=== PATIENT | female | born 1990 | race Caucasian/White ===

== ENCOUNTER 2017-03-18 22:16 | Emergency (ER) | payer BC ==
--- NOTE | 2017-03-18 22:59 | ERNOTE ---
Dyspnea - Date Date of Service: 03/18/17 - General Time Seen by Provider: 03/18/17 22:47 Source: patient Exam Limitations: no limitations - Immun/Allergies/Home Medications Immunizations: IMMUNIZATION HX Immunizations Up to Date Yes History of Influenza Vaccine No Hx Pneumococcal Vaccination No Allergies/Adverse Reactions: Allergies No Known Allergies Allergy (Verified 03/18/17 22:39) Home Medications: HOME MEDICATIONS Iron 03/03/17 [Last Taken Unknown] Levothyroxine Sodium 03/03/17 [Last Taken Unknown] Magnesium 03/03/17 [Last Taken Unknown] Vitamins 03/03/17 [Last Taken Unknown] Ascorbic Acid [Vitamin C] 500 mg PO DAILY 03/18/17 [Last Taken Unknown] Cholecalciferol [Vitamin D] 400 unit PO DAILY 03/18/17 [Last Taken Unknown] Nitrofurantoin/Nitrofuran Mac [Macrobid] 100 mg PO Q12H #14 cap 03/19/17 [Last Taken Unknown] - History of Present Illness Narrative: Patient presents to the emergency room for one episode of vomiting that was followed by chest pain and shortness of breath while at rest. She denies having any history of GERD, she has no history of asthma but she does feel short of breath. Does state that since since she has arrived to our emergency room for shortness of breath has improved. She has not taken any medication for this shortness of breath. Patient is 14 weeks . She denies any vaginal complaints. He denies any fevers or chills cough or congestion. He denies any history of diaphoresis or other symptoms Review of Systems - Review of Systems Constitutional: Present: no symptoms reported EYE: Present: no symptoms reported ENT: Present: no symptoms reported Respiratory: Present: See HPI Cardiology: Present: See HPI Gastrointestinal/Abdominal: Present: See HPI Genitourinary: Present: no symptoms reported Musculoskeletal: Present: no symptoms reported Skin: Present: no symptoms reported - Patient's Past Medical History Patient History - Medical: Hypothyroidism Patient History - Cardiac/Respiratory: No pertinent hx Patient History - Cancer: No Hx of Cancer Patient History - Surgical Procedures: Appendectomy, T & A, Other Patient History - Other: None LMP (females 10-50): LMP (Calendar): 12/08/16 - Family History Mother Family History - Medical: No pertinent hx Family History - Cardiac/Respiratory: No pertinent hx Family History - Cancer: No pertinent family hx - Social History Living Situations: significant other Abuse History: No History of abuse Psych History: Hx of Anxiety, Hx of Depression Smoking Status: Former smoker Have you smoked in the past 12 months: No Do you dip or chew tobacco: No Smoking Stop Date: 03/13/14 Alcohol Use: none Drug Use: none - Immunizations Immunizations Up to Date: Yes Hx Pneumococcal Vaccination: No History of Influenza Vaccine: No Physical Exam - Physical Exam General Appearance: Present: wd/wn, alert, no apparent distress Head Exam: Present: normal inspection, no evidence of injury Ears, Nose, Throat: Present: normal ENT inspection Neck: Present: normal inspection, nontender Respiratory: Present: no respiratory distress, normal breath sounds, no accessory muscle use, chest nontender, lungs clear Cardiovascular/Chest: Present: regular rate, rhythm, no murmur, normal peripheral pulses Gastrointestinal/Abdominal: Present: normal bowel sounds, nontender, nondistended, soft, no organomegaly ED Progress - Results and Orders Patient's Lab Results:: I have reviewed the patient's lab results. - Vital Signs Patient's Vital Signs:: I have reviewed the patient's vital signs. Vital Signs: Vital Signs 03/18/17 22:23 Temperature 36.2 C L Pulse Rate 60 Respiratory 18 Rate Blood Pressure 116/60 O2 Sat by Pulse 100 Oximetry - EKG EKG: NSR EKG read: Interp. by me - X-Ray X-Ray #1 X-Ray: chest - Progress/Reassessment Chief Complaint: Dyspnea Plan - Plan Plan: This case was discussed in detail with our floor attendant and supervisor costuming Dr. Bland. All lab tests and findings were discussed with our supervisor costuming, repeat questioning of the patient revealed the patient was no longer having shortness of breath. I was advised by the supervisor costuming on-call that the patient states to be sent home. Patient's urinalysis reveals bacteria and white blood cells at this time we will treat this patient for bacteriuria during and educate her about dyspnea of Departure Clinical Impression: UTI in Qualifiers: Trimester: second trimester Qualified Code(s): O23.42 - Unspecified infection of urinary tract in , second trimester - Departure Disposition: Home self-care Condition: Good Instructions: and Urinary Tract Infection Additional Instructions: You may have a condition called dyspnea of . At this time our tests show that you have a urinary tract infection for which she will be treated. Please follow up with her primary care physician as indicated and return to the ER if shortness of breath was to return Referrals: Paco Bland DO [Primary Care Provider] - Prescriptions: Nitrofurantoin/Nitrofuran Mac [Macrobid] 100 mg PO Q12H #14 cap
[2017-03-18 23:03] LABS: Hematocrit 35.6 % (37.0-47.0); Hemoglobin 11.9 gm/dL (12.5-16.0); Mean Cell Volume 91.8 fl (78-100); Mean Corpuscular Hemoglobin 30.7 pg (27-31); Mean Corpuscular Hgb Conc 33.4 g/dl (32-36); Mean Platelet Volume 11.3 fl (6.0-9.5); Neutrophil # 6.7 K/mm3 (1.3-6.0); Neutrophil % 65.4 % (42-75.0); Platelet Count 228 K/mm3 (150-450); Red Blood Count 3.88 M/mm3 (4.2-5.4); Red Cell Distribution Width 12.4 % (11.5-14.0); White Blood Count 10.2 K/mm3 (4.0-10.5)
[2017-03-18 23:36] LABS: ALT 15 U/L (19-67); AST 11 U/L (0-48); Albumin * 3.3 gm/dl (3.4-5.0); Alkaline Phosphatase * 42 U/L (50-170); Anion Gap 16.2 mmol/L (6.8-13.8); BUN/Creatinine Ratio 11.1 (9.0-21.6); Bilirubin, Total 0.3 mg/dL (0.0-1.1); Blood Urea Nitrogen 6 mg/dL (3-23); Calcium * 8.8 mg/dL (7.9-10.9); Carbon Dioxide 23.4 mmol/L (24-32.6); Chloride 102 mmol/L (97-106); Glucose * 87 mg/dL (70-110); Potassium 3.6 mmol/L (3.4-4.6); Sodium 138 mmol/L (132-142); Total Protein 7.4 gm/dL (6.2-8.2); Troponin I Less than 0.017 ng/ml (0.00-0.10)
[2017-03-18 23:48] LABS: Urine Bilirubin Negative (NEGATIVE); Urine Blood Negative /ul (NEGATIVE); Urine Ketone Negative (NEGATIVE); Urine Nitrite Negative (NEGATIVE); Urine Protein Negative (NEGATIVE); Urine Urobilinogen Normal (NORMAL); Urine pH 6.5 pH (5.0-7.0)
[2017-03-18 23:57] LABS: Urine Appearance Clear; Urine Bacteria TRACE; Urine Color Yellow; Urine RBC None Seen /hpf (0-5); Urine WBC TRACE /hpf (0-5)
[2017-03-19] MEDS ORDERED: NITROFURANTOIN/NITROFURAN MAC 100 MG CAPSULE ONE (00:07)
[2017-03-19] MEDS: NITROFURANTOIN/NITROFURAN MAC 100 MG CAPSULE PO SCH (00:08)
[2017-03-19 00:36] VITALS: BP 111/58
== END 2017-03-19 00:25 | disposition home or self-care (01) ==
LOC: ER 22:16
PROC: 4A033R1 Measurement of Arterial Saturation, Peripheral, Percutaneous Approach (ICD-10-PCS; principal; 2017-03-18)
DX: O23.42 Unspecified infection of urinary tract in pregnancy, second trimester (principal); Z3A.14 14 weeks gestation of pregnancy; Z87.891 Personal history of nicotine dependence

== ENCOUNTER 2017-08-19 07:34 | Inpatient (IN) ==
[2017-08-19] MEDS ORDERED: RINGER'S SOLUTION,LACTATED 1,000 ML IV PRN (08:10)
[2017-08-19] MEDS ORDERED: BUTORPHANOL TARTRATE 2 MG/ML VIAL IV PRN (08:10)
[2017-08-19] MEDS ORDERED: OXYTOCIN/DEXTROSE 5%-WATER 30 UNITS/500 ML BAG IV ONE (08:10)
[2017-08-19] MEDS ORDERED: LIDOCAINE HCL 50 ML VIAL PERI PRN (08:10)
[2017-08-19] MEDS ORDERED: ONDANSETRON HCL/PF 2 MG/ML VIAL IV PRN ×2 (08:10→13:59)
[2017-08-19] MEDS ORDERED: RINGER'S SOLUTION,LACTATED 1,000 ML IV ONE (08:10)
[2017-08-19] MEDS: DEXTROSE 5%-LACTATED RINGERS 1,000 ML IV PRN ×3 (09:09→20:39)
[2017-08-19 09:47] LABS: Hematocrit 36.5 % (37.0-47.0); Hemoglobin 11.8 gm/dL (12.5-16.0); Mean Cell Volume 92.9 fl (78-100); Mean Corpuscular Hgb Conc 32.3 g/dl (32-36); Mean Platelet Volume 13.6 fl (6.0-9.5); Neutrophil # 10.5 K/mm3 (1.3-6.0); Neutrophil % 83.9 % (42-75.0); Platelet Count 173 K/mm3 (150-450); Red Blood Count 3.93 M/mm3 (4.2-5.4); Red Cell Distribution Width 13.6 % (11.5-14.0); White Blood Count 12.5 K/mm3 (4.0-10.5)
[2017-08-19 10:02] LABS: Random Urine Total Protein Less than 6.0 mg/dL (0-12)
[2017-08-19 10:15] LABS: Albumin * 2.5 gm/dl (3.4-5.0); Anion Gap 12.5 mmol/L (6.8-13.8); BUN/Creatinine Ratio 12.5 (9.0-21.6); Bilirubin, Total 0.2 mg/dL (0.0-1.1); Ca. Corrected For Albumin 10.4 mg/dL (8.4-10.2); Calcium * 9.5 mg/dL (7.9-10.9); Carbon Dioxide 24.1 mmol/L (24-32.6); Potassium 3.6 mmol/L (3.4-4.6); Total Protein 6.6 gm/dL (6.2-8.2)
[2017-08-19] MEDS ORDERED: NALOXONE HCL 1 MG/1 ML SYRG IV PRN (13:59)
[2017-08-19] MEDS ORDERED: BUPIVACAINE HCL/0.9 % NACL/PF 250 ML EP PRN (13:59)
[2017-08-19] MEDS ORDERED: BUPIVACAINE HCL/PF 30 ML VIAL EP SCH (14:00)
--- NOTE | 2017-08-19 14:42 | PN ---
Subjective - Date and Time Seen Date: 08/19/17 Subjective Narrative: Labor note 26 yo, CF, G1 at 36.2 w with PPROM at 6 am this morning. admitted for induction. GBS negative dilated to 1 cm at admission. pitocin started for induction, currently at 18 mu/min. received one dose of stadol at 13:15. cervix 3/50/-3 at 13:15 FHR: reassuring 125s with accels (Nov[employer] wireless monitoring) [place]: irregular, not picking up contractions well due to body habitus. other problems: hypothyroidism morbid obesity (BMI 44, 105.6 kg) likely developing gestational hypertension. BP mildly elevated, no headache. pih labs normal and random protein/creatinine ratio 193. Plan: continue pitocin as tolerated. epidural per patient request. consider IUPC/ISE for monitoring. Lisa Dillon MD Objective - Vitals Vitals: Last Vital Signs Temp 36.4 C L 08/19/17 14:35 Pulse 46 L 08/19/17 14:35 Resp 18 08/19/17 14:35 BP 141/63 08/19/17 14:35 Pulse Ox 99 08/19/17 14:35 - Abnormal Lab Findings Abnormal Lab Findings: Abnormal Lab Results 08/19/17 08/19/17 08/19/17 Range/Units 09:34 09:34 09:34 WBC 12.5 H (4.0-10.5) K/mm3 RBC 3.93 L (4.2-5.4) M/mm3 Hgb 11.8 L (12.5-16.0) gm/dL Hct 36.5 L (37.0-47.0) % MPV 13.6 H (6.0-9.5) fl Immature Gran # (Auto) 0.05 H (0.000-0.0310) K/mm3 Neutrophils % 83.9 H (42-75.0) % Lymphocytes % 11.9 L (20-51) % Neutrophils # 10.5 H (1.3-6.0) K/mm3 Lymphocytes # 1.49 L (1.5-3.5) k/mm3 Est GFR (Non-Af Amer) 139 H (60-130) mL/min Calcium Adj for Albumin 10.4 H (8.4-10.2) mg/dL ALT 15 L (19-67) U/L Albumin 2.5 L (3.4-5.0) gm/dl Ur Random Creatinine 31.1 L (60-200) mg/dL
--- NOTE | 2017-08-19 15:03 | OR ---
Anesthesia Procedure Note - Anesthesia Procedure Note Date of Service: 08/19/17 Narrative: Vital Signs - Last Taken Temp 36.4 C L 08/19/17 14:35 Pulse 46 L 08/19/17 14:35 Resp 18 08/19/17 14:35 BP 141/63 08/19/17 14:35 Pulse Ox 99 08/19/17 14:35 08/19/17 15:02 ANESTHESIA PROCEDURE NOTE Date of Procedure: 08/19/2017. Time of procedure: 1440. Performed by: Twan Zelaya CRNA Industrial Pharmacist: None. Preprocedure diagnosis: Active labor. Post procedure diagnosis: Same. Procedure: Insertion of labor epidural. Indications: The patient is a 26 -year-old female in active labor requesting labor epidural for pain management. Findings: See below. Details of the procedure: The patient was placed in a sitting position. DuraPrep as well as Betadine swabs X3 was applied to the patient's back. Patient was then draped in a sterile fashion. Lidocaine 1% was infiltrated to the skin and subcutaneous tissues at the level of the L3-4 interspace. The epidural space was identified using a 18-gauge Tuohy needle with loss-of- resistance technique. Epidural catheter was inserted to a depth of 12 centimeters at skin. Negative test dose was elicited using 3 mL of 1.5% preservative-free lidocaine plus epinephrine 1 200,000. The epidural catheter was then taped and secured in place. A loading dose of 8 mL of 0.25% preservative-free bupivacaine was administered to the epidural catheter after negative aspiration for blood and CSF. EBL: Minimal. Fluids: N/A. Specimen: N/A. Post procedure condition: The patient tolerated the procedure well. No complications were noted. Thank you for this consultation. Twan Zelaya CRNA
[2017-08-19] MEDS: CALCIUM CARBONATE 500 MG TAB.CHEW PO PRN (17:12)
[2017-08-19] MEDS ORDERED: FAMOTIDINE 20 MG in DEXTROSE 5 % IN WATER 100 ML IV PRN ×2 (17:26)
[2017-08-19] MEDS: CLINDAMYCIN PHOSPHATE 900 MG in DEXTROSE 5 % IN WATER 100 ML IV SCH ×2 (17:52)
[2017-08-20] MEDS ORDERED: MISOPROSTOL 100 MCG TABLET VG ONE (00:01)
[2017-08-20] MEDS ORDERED: MISOPROSTOL 200 MCG TABLET RC ONE (00:15)
--- NOTE | 2017-08-20 00:54 | OR ---
Operative Report - Dictated Report Narrative: Spontaneous Vaginal Delivery Note: 26 yo, CF, G1 at 36.2 w admitted with PPROM, grossly ruptured, GBS negative. Dilated to 1 cm at admission. Blood pressure was mildly elevated. PIH labs were normal. Pitocin started for induction. Received stadol x 1 dose when dilated to 3 cm. Then received epidural 1.5 hours later. Developed post epidural heart rate decelerations to the 60s and 70s. Pitocin was discontinued. Blood pressured was normal at the time, 127/59 and 133/66. However, patient's heart rate was in the 47-59 range. Patient's heart rate prior to epidural was also in the 50-60. Stat EKG obtained per anesthesia recommendation and showed sinus bradycardia with ST changes. Internal medicine Dr. Jimenez was called for consultation. Patient was not having chest pain. Troponin ordered per Dr. Jimenez and was normal. heart rate returned to normal after IV fluid bolus. IUPC and ISE were placed after epidural placement due to maternal morbid obesity. heart rate remained reassuring. Pitocin resumed at 3 mu/min. Received one dose of clindamycin 900 mg iv after 12 hours of ruptured membrane and also due to internal monitoring. Patient progressed to complete without complications. Pushed for over an hour. Head delivered in OA over the perineum. No nuchal cord noted. The anterior shoulder delivered, followed by the posterior shoulder and the rest of the baby without difficulty. Baby was trying to cry, but couldn't. Baby placed on maternal abdomen for drying and care by the nursing. Cord was clamped at one minute of life and cut by the father of baby. A cord segment was obtained for cord gas. Cord blood was obtained. Placenta delivered intact with 3 vessel cord. Pitocin drip started after placenta delivered. Exam of the perineum, vaginal and cervix revealed a second degree perineum laceration. This was repaired with 3-0 Vicryl suture in a normal fashion. Uterus appeared soft and cytotec 800 mcg was placed in the rectum. Fundus was massaged and firmed up gradually. Bleeding was moderate. Mother tolerated the delivery well. EBL 200 ml. Baby was taken to nursery for further care and assessment. : male, 2357 grams, 5 lbs and 3.1oz. 2/6/7. Time of delivery: 23:52. Lisa Dillon MD History for MU Definition: * The number of deliveries resulting in a live the patient experienced prior to current hospitalization * The previous delivery of live twins or any live multiple gestation is considered one live event. *If primagravida or nulliparous is documented select zero for the number of previous live births. Live Events: 0
[2017-08-20] MEDS ORDERED: GLYCERIN/WITCH HAZEL LEAF 40 APPL BOX TP PRN (01:16)
[2017-08-20] MEDS ORDERED: HYDROCORTISONE 30 APPL TUBE TP PRN (01:16)
[2017-08-20] MEDS ORDERED: OXYTOCIN/DEXTROSE 5%-WATER 30 UNITS/500 ML BAG IV ONE (01:16)
[2017-08-20] MEDS ORDERED: BENZOCAINE/MENTHOL 81 SPRAY CAN TP PRN (01:16)
[2017-08-20] MEDS ORDERED: diphenhydrAMINE HCL 25 MG CAPSULE PO PRN (01:16)
[2017-08-20] MEDS ORDERED: BISACODYL 10 MG SUPP.RECT RC PRN (01:16)
[2017-08-20] MEDS ORDERED: SENNOSIDES 8.6 MG TABLET PO PRN (01:16)
[2017-08-20] MEDS: CLINDAMYCIN PHOSPHATE 900 MG in DEXTROSE 5 % IN WATER 100 ML IV SCH ×2 (01:41)
[2017-08-20] MEDS: IBUPROFEN 800 MG TABLET PO PRN ×4 (02:04→22:52)
[2017-08-20] MEDS: HYDROcodone/ACETAMINOPHEN 1 EACH TABLET PO PRN ×5 (02:05→19:40)
[2017-08-20] MEDS: LEVOTHYROXINE SODIUM 50 MCG TABLET PO SCH (07:09)
[2017-08-20] MEDS: DOCUSATE SODIUM 100 MG CAPSULE PO SCH (08:49)
--- NOTE | 2017-08-20 11:58 | PN ---
Subjective - Date and Time Seen Date: 08/20/17 Subjective Narrative: day 1, s/p no complaints. BP still mildly elevated, but no symptoms. still sinus bradycardia 45-55 range, and this is her normal according to the patient. troponin normal x 2. FT4 was normal as well. by pumping. normal lochia. baby doing well now and on room air. Objective - Vitals Vitals: Last Vital Signs Temp 36.3 C L 08/20/17 07:53 Pulse 55 L 08/20/17 07:53 Resp 16 08/20/17 07:53 BP 133/80 08/20/17 07:53 Pulse Ox 98 08/20/17 07:53 - Exam Constitutional: Present: Alert, Oriented x3, Cooperative Respiratory: Present: no respiratory distress Abdomen: Present: soft, nontender, nondistended, other - fundus firm and non- tender Extremity: Present: normal range of motion, no calf tenderness, lower extremity edema - 1+, pedal edema - 1+ Skin Exam: Present: normal color, warm/dry, no cyanosis Appearance: Present: appropriate appearance Eye contact: Present: cooperative, good eye contact, normal speech Cauti Physician Documentation - Urinary Catheter Management Urethral (Carreon) Date of Insertion: 08/19/17 Time of Insertion: 15:41 Date of Removal: 08/19/17 Time of Removal: 22:45 Assessment/Plan Plan Narrative: A: PPD#1, s/p stable, but with 1. history of sinus bradycardia and still in sinus bradycardia without symptoms , troponin normal x 2, FT4 normal. 2. blood pressure mildly elevated, pih labs normal, patient asymptomatic. 3. history of hypothyroidism, on levothyroxin 50 mcg daily. Plan: routine care. encourage ambulation Lisa Dillon MD
[2017-08-21] MEDS: CALCIUM CARBONATE 500 MG TAB.CHEW PO PRN (01:49)
[2017-08-21] MEDS: HYDROcodone/ACETAMINOPHEN 1 EACH TABLET PO PRN ×6 (03:39→23:31)
[2017-08-21] MEDS: LEVOTHYROXINE SODIUM 50 MCG TABLET PO SCH (06:53)
[2017-08-21] MEDS: IBUPROFEN 800 MG TABLET PO PRN ×3 (08:26→23:31)
[2017-08-21] MEDS: DOCUSATE SODIUM 100 MG CAPSULE PO SCH ×3 (08:41→19:59)
--- NOTE | 2017-08-21 11:45 | PN ---
Progess Note - Interim Date: 08/21/17 Time: 11:45 Narrative: 08/21/17 11:45 Subjective: Patient is doing well, ambulating, voiding, tolerating by mouth. Minimal lochia. Pain controlled with medication. Objective: Vital signs stable General: no acute distress Abdomen: Soft, nondistended, diffusely tender, fundus firm Extremities: Minimal edema, nontender Assessment and plan: Postoperative day 2 Feeding: breast/bottle Pain: Controlled with by mouth medication Routine postoperative care.
[2017-08-21 19:07] VITALS: BP 137/65
== END 2017-08-21 23:55 | disposition home or self-care (01) | DRG 775 ==
LOC: OBCLINIC 07:34 → OB 08:00 → MS 08-20 16:25
PROVIDERS: ADMIT Obstetrics & Gynecology; ATTEND Obstetrics & Gynecology
DX: E03.9 Hypothyroidism, unspecified; O99.284 Endocrine, nutritional and metabolic diseases complicating childbirth; Z3A.36 36 weeks gestation of pregnancy; O99.214 Obesity complicating childbirth; O70.1 Second degree perineal laceration during delivery; R00.1 Bradycardia, unspecified; Z68.41 Body mass index [BMI] 40.0-44.9, adult; O60.14X0 Preterm labor third trimester with preterm delivery third trimester, not applicable or unspecified; Z37.0 Single live birth; O13.4 Gestational [pregnancy-induced] hypertension without significant proteinuria, complicating childbirth; O42.013 Preterm premature rupture of membranes, onset of labor within 24 hours of rupture, third trimester; E66.01 Morbid (severe) obesity due to excess calories
CPT/HCPCS: 36415; 59025; 80053; 82570; 84155; 84156; 84439; 84481; 84484; 85025; 86850; 86900; 88307; 93005; J2405

== ENCOUNTER 2017-08-25 12:15 | Inpatient (IN) ==
[2017-08-25] MEDS ORDERED: RINGER'S SOLUTION,LACTATED 1,000 ML IV PRN (12:26)
[2017-08-25] MEDS ORDERED: MAGNESIUM SULFATE IN WATER 50 ML, MAGNESIUM SULFATE IN WATER 50 ML IV ONE ×2 (12:26)
[2017-08-25 13:03] LABS: Hematocrit 33.3 % (37.0-47.0); Mean Cell Volume 91.5 fl (78-100); Mean Corpuscular Hemoglobin 30.2 pg (27-31); Mean Platelet Volume 12.1 fl (6.0-9.5); Neutrophil # 11.2 K/mm3 (1.3-6.0); Neutrophil % 78.6 % (42-75.0); Platelet Count 235 K/mm3 (150-450); Red Blood Count 3.64 M/mm3 (4.2-5.4); Red Cell Distribution Width 13.3 % (11.5-14.0); White Blood Count 14.3 K/mm3 (4.0-10.5)
[2017-08-25 13:18] LABS: Albumin * 2.9 gm/dl (3.4-5.0); Anion Gap 16.5 mmol/L (6.8-13.8); BUN/Creatinine Ratio 16.4 (9.0-21.6); Bilirubin, Total 0.3 mg/dL (0.0-1.1); Ca. Corrected For Albumin 9.4 mg/dL (8.4-10.2); Calcium * 8.8 mg/dL (7.9-10.9); Carbon Dioxide 22.1 mmol/L (24-32.6); Magnesium 1.6 mg/dL (1.2-2.8); Potassium 3.6 mmol/L (3.4-4.6); Total Protein 6.9 gm/dL (6.2-8.2)
[2017-08-25] MEDS: NIFEdipine 30 MG TAB.SR.24H PO SCH (13:18)
[2017-08-25] MEDS ORDERED: diphenhydrAMINE HCL 50 MG/ML VIAL IV ONE (13:30)
[2017-08-25 13:32] LABS: Urine Bilirubin Negative (NEGATIVE); Urine Blood Negative /ul (NEGATIVE); Urine Ketone Negative (NEGATIVE); Urine Nitrite Negative (NEGATIVE); Urine Protein Negative (NEGATIVE); Urine Specific Gravity <=1.005 SP.GR. (1.005-1.010); Urine Urobilinogen Normal (NORMAL)
[2017-08-25 13:41] LABS: Random Urine Total Protein Less than 6.0 mg/dL (0-12)
[2017-08-25] MEDS: MAGNESIUM SULFATE IN WATER 1,000 ML IV SCH (14:03)
[2017-08-25] MEDS: METOCLOPRAMIDE HCL 5 MG/ML VIAL IV ONE ×3 (14:09→15:07)
[2017-08-25] MEDS ORDERED: METOCLOPRAMIDE HCL 5 MG/ML VIAL IV PRN (14:22)
[2017-08-25] MEDS: IBUPROFEN 800 MG TABLET PO PRN ×2 (14:40→22:38)
[2017-08-25 14:47] LABS: Urine Appearance Clear (CLEAR); Urine Bacteria None Seen; Urine Color Pale Yellow; Urine RBC None Seen /hpf (0-5); Urine WBC None Seen /hpf (0-5)
--- NOTE | 2017-08-25 18:46 | PN ---
Subjective - Date and Time Seen Date: 08/25/17 Subjective Narrative: patient seen and evaluated. pt is s/p 6 days ago. admitted for preeclampsia with severe features. had severe headache earlier, not responding to tylenol and ibuprofen at home. headache now much improved, mild 4/10. S/P benadryl iv x 1 dose, reglan iv x 4 doses, and ibuprofen po x 1 dose. BP was in 180-200/80s this morning and now in mild to normal range. s/p procardia XL 30 mg po x 1 at about 1 pm. patient is on magnesium 2g/hr now. s/p 6 g load earlier. diuresing well. Urine output by now: 2050 ml Exam: NAD lungs clear DTR: not inducible (before or after magnesium sulphate) (Patient feels well without feeling weakness) magnesium level at admission normal. repeat magnesium level pending. Plan: continue magnesium sulphate for 24 hours. procardia XL for high blood pressure. history of sinus bradycardia, not a candidate for labetalol. seizure precautions. Lisa Dillon MD Objective - Vitals Vitals: Last Vital Signs Temp 37.4 C 08/25/17 13:50 Pulse 62 08/25/17 16:00 Resp 20 08/25/17 16:00 BP 135/75 08/25/17 16:00 Pulse Ox 98 08/25/17 16:00 - Abnormal Lab Findings Abnormal Lab Findings: Abnormal Lab Results 08/25/17 08/25/17 08/25/17 Range/Units 12:26 13:00 13:05 WBC 14.3 H (4.0-10.5) K/mm3 RBC 3.64 L (4.2-5.4) M/mm3 Hgb 11.0 L (12.5-16.0) gm/dL Hct 33.3 L (37.0-47.0) % MPV 12.1 H (6.0-9.5) fl Immature Gran % (Auto) 0.70 H (0.001-0.429) % Immature Gran # (Auto) 0.10 H (0.000-0.0310) K/mm3 Neutrophils % 78.6 H (42-75.0) % Lymphocytes % 14.0 L (20-51) % Neutrophils # 11.2 H (1.3-6.0) K/mm3 Carbon Dioxide 22.1 L (24-32.6) mmol/L Anion Gap 16.5 H (6.8-13.8) mmol/L Albumin 2.9 L (3.4-5.0) gm/dl Ur Random Creatinine 14.7 L (60-200) mg/dL U [place] Prot/Creat Ratio 408 H (0-199) mg/gm Cauti Physician Documentation - Urinary Catheter Management Urethral (Carreon) Date of Insertion: 08/25/17 Time of Insertion: 13:30
[2017-08-25] MEDS: LEVOTHYROXINE SODIUM 50 MCG TABLET PO SCH (19:21)
[2017-08-25] MEDS: ACETAMINOPHEN 325 MG TABLET PO PRN (19:46)
[2017-08-26] MEDS: ACETAMINOPHEN 325 MG TABLET PO PRN ×3 (00:05→08:01)
[2017-08-26] MEDS: IBUPROFEN 800 MG TABLET PO PRN ×2 (04:25→13:29)
[2017-08-26] MEDS: LEVOTHYROXINE SODIUM 50 MCG TABLET PO SCH (07:04)
[2017-08-26] MEDS: NIFEdipine 30 MG TAB.SR.24H PO SCH (08:01)
[2017-08-26 08:08] LABS: Hematocrit 36.1 % (37.0-47.0); Hemoglobin 11.8 gm/dL (12.5-16.0); Mean Cell Volume 91.4 fl (78-100); Mean Corpuscular Hemoglobin 29.9 pg (27-31); Mean Corpuscular Hgb Conc 32.7 g/dl (32-36); Mean Platelet Volume 11.3 fl (6.0-9.5); Neutrophil # 7.2 K/mm3 (1.3-6.0); Neutrophil % 76.1 % (42-75.0); Platelet Count 269 K/mm3 (150-450); Red Blood Count 3.95 M/mm3 (4.2-5.4); Red Cell Distribution Width 13.3 % (11.5-14.0); White Blood Count 9.4 K/mm3 (4.0-10.5)
[2017-08-26 08:19] LABS: Anion Gap 13.4 mmol/L (6.8-13.8); BUN/Creatinine Ratio 5.6 (9.0-21.6); Bilirubin, Total 0.3 mg/dL (0.0-1.1); Ca. Corrected For Albumin 8.2 mg/dL (8.4-10.2); Calcium * 7.7 mg/dL (7.9-10.9); Carbon Dioxide 25.9 mmol/L (24-32.6); Potassium 3.3 mmol/L (3.4-4.6); Total Protein 7.2 gm/dL (6.2-8.2)
[2017-08-26] MEDS ORDERED: PRENATAL VITS96/IRON FUM/FOLIC 1 TAB TABLET PO SCH (09:00)
[2017-08-26] MEDS: MAGNESIUM SULFATE IN WATER 1,000 ML IV SCH (09:30)
[2017-08-26] MEDS: BUTALB/ACETAMINOPHEN/CAFFEINE 1 TAB TABLET PO PRN ×3 (09:30→17:38)
--- NOTE | 2017-08-26 09:30 | PN ---
Subjective - Date and Time Seen Date: 08/26/17 Subjective Narrative: hospital day 1 admitted for severe preeclampsia. currently on magnesium sulphate 2 g/h and procardia XL 30 mg daily. diuresing well. BP now normal, 121/60, 128/62. still has mild headache, 5/10. well. normal lochia. I/O: 6246/50511 ml, difference -7004 ml. weight: 99.79 kg at admission and 95 kg this AM Exam: NAD lungs clear. heart RRR Ext: trace edema DTR: 2/4 bilateral knees A: severe preeclampsia, improving Plan: continue magnesium sulphate for 24 hour. will switch to fioricet for headache. consider discharge home this afternoon. Lisa Dillon MD Objective - Vitals Vitals: Last Vital Signs Temp 37.1 C 08/26/17 07:00 Pulse 72 08/26/17 09:00 Resp 16 08/26/17 09:00 BP 128/62 08/26/17 09:00 Pulse Ox 100 08/26/17 09:00 - Abnormal Lab Findings Abnormal Lab Findings: Abnormal Lab Results 08/25/17 08/25/17 08/25/17 Range/Units 12:26 13:00 13:05 WBC 14.3 H (4.0-10.5) K/mm3 RBC 3.64 L (4.2-5.4) M/mm3 Hgb 11.0 L (12.5-16.0) gm/dL Hct 33.3 L (37.0-47.0) % MPV 12.1 H (6.0-9.5) fl Immature Gran % (Auto) 0.70 H (0.001-0.429) % Immature Gran # (Auto) 0.10 H (0.000-0.0310) K/mm3 Neutrophils % 78.6 H (42-75.0) % Lymphocytes % 14.0 L (20-51) % Neutrophils # 11.2 H (1.3-6.0) K/mm3 Lymphocytes # (1.5-3.5) k/mm3 Sodium (132-142) mmol/L Plasma Sodium (130-142) mmol/L Potassium (3.4-4.6) mmol/L Chloride (97-106) mmol/L Carbon Dioxide 22.1 L (24-32.6) mmol/L Anion Gap 16.5 H (6.8-13.8) mmol/L BUN/Creatinine Ratio (9.0-21.6) Calcium (7.9-10.9) mg/dL Calcium Adj for Albumin (8.4-10.2) mg/dL Magnesium (1.2-2.8) mg/dL Albumin 2.9 L (3.4-5.0) gm/dl Ur Random Creatinine 14.7 L (60-200) mg/dL U [place] Prot/Creat Ratio 408 H (0-199) mg/gm 08/25/17 08/26/17 08/26/17 Range/Units 20:00 07:58 07:58 WBC (4.0-10.5) K/mm3 RBC 3.95 L (4.2-5.4) M/mm3 Hgb 11.8 L (12.5-16.0) gm/dL Hct 36.1 L (37.0-47.0) % MPV 11.3 H (6.0-9.5) fl Immature Gran % (Auto) 1.40 H (0.001-0.429) % Immature Gran # (Auto) 0.13 H (0.000-0.0310) K/mm3 Neutrophils % 76.1 H (42-75.0) % Lymphocytes % 15.7 L (20-51) % Neutrophils # 7.2 H (1.3-6.0) K/mm3 Lymphocytes # 1.47 L (1.5-3.5) k/mm3 Sodium 143 H (132-142) mmol/L Plasma Sodium 143 H (130-142) mmol/L Potassium 3.3 L (3.4-4.6) mmol/L Chloride 107 H (97-106) mmol/L Carbon Dioxide (24-32.6) mmol/L Anion Gap (6.8-13.8) mmol/L BUN/Creatinine Ratio 5.6 L (9.0-21.6) Calcium 7.7 L (7.9-10.9) mg/dL Calcium Adj for Albumin 8.2 L (8.4-10.2) mg/dL Magnesium 4.6 H (1.2-2.8) mg/dL Albumin 3.0 L (3.4-5.0) gm/dl Ur Random Creatinine (60-200) mg/dL U [place] Prot/Creat Ratio (0-199) mg/gm Cauti Physician Documentation - Urinary Catheter Management Urethral (Carreon) Date of Insertion: 08/25/17 Time of Insertion: 13:30
[2017-08-26 17:57] VITALS: BP 117/55
--- NOTE | 2017-08-26 18:13 | DS ---
(1) Pre-eclampsia, Problem: Acute (2) Obesity Problem: Acute (3) Hypothyroidism Problem: Acute Description of Stay: Patient admitted for preeclampsia with severe features. She had severe headache at admission. Her blood pressure was initially in 180-200/80s. She received magnesium sulphate iv x 24 hours for seizure prophylaxis and has been diuresing well, putout over 3000 ml of urine today. She lost 11 lbs in one day. Blood pressures are now normal and headache has significantly improved and rates mild now. She is and her lochia is small. She is stable for discharge. Procedures Performed: none Discharge Location: Home Disposition: Home self-care Condition: Stable Face to Face Encounter completed per [facility] Guidelines: Yes Discharge Activity: Activity as tolerated Discharge Diet: General/regular food Complete Home Medications List: Complete Home Medication List: RX: Levothyroxine Sodium [Synthroid] 50 mcg PO DAILY 08/19/17 RX: Vits96/Iron Fum/Folic [ S] 1 tab PO DAILY 08/19/17 RX: Ibuprofen [Motrin] 800 mg PO Q6H PRN tablet 08/21/17 Butalb/Acetaminophen/Caffeine [Fioricet 50-300-40 mg Capsule] 1 each PO Q4H PRN #30 capsule 08/26/17 NIFEdipine [Procardia Xl] 30 mg PO DAILY #10 tab.sr.24h 08/26/17
== END 2017-08-26 18:33 | disposition home or self-care (01) | DRG 776 ==
LOC: OB 12:15 → OBSVTOIN 12:26
PROVIDERS: ADMIT Obstetrics & Gynecology; ATTEND Obstetrics & Gynecology
DX: O14.15 Severe pre-eclampsia, complicating the puerperium; E03.9 Hypothyroidism, unspecified
CPT/HCPCS: 36415; 80053; 81001; 82570; 83735; 84155; 84156; 85025; G0379